=== PATIENT | male | born 1960 | race Caucasian/White ===

== ENCOUNTER → 2017-06-02 | Outpatient (CLI) | payer BC ==
--- NOTE | 2017-06-03 10:13 | PCVCIMAG ---
APPROVED REPORT Exam: Stress Echocardiogram Indication: Family history cad, chest pain Patient Location: Echo lab Stress Nurse: Jessie Bui RN Status: routine HR: 65 bpm Rhythm: NSR Procedure The patient underwent an Exercise Stress Test using the Tavo Protocol. Blood pressure, heart rate, and EKG were monitored. An Echocardiogram was performed by environmental science technician in four stages in quad fashion. At peak stress, four selected images were obtained and placed side by side with resting images for comparison. Stress Test Details Stress Test: Exercise stress testing was performed using a Tavo protocol. HR Resting HR: 65 bpmMax Heart Rate (APMHR): 165 bpm Max HR Achieved: 14.80 bpmTarget HR (85% APMHR): 140 bpm % of APMHR: 8 HR response to stress: Normal HR response to stress BP Resting BP: 122/70 mmHg Max BP: 172/76 mmHg ECG Resting ECG: Sinus Rhythm Stress ECG: Sinus Rhythm, Sinus Tachycardia Arrhythmia: None Recovery ECG: Sinus Rhythm Clinical Reason for Termination: Maximal effort Exercise duration: 12 min 24 sec Highest Stage Achieved: Stage 4: 4.2 mph at 16% grade. Exercise capacity: 14.80 METs Overall Exercise Capacity for Age: Good Stress ECG Conclusion 1. SUBJECTIVELY NEGATIVE FOR ISCHEMIA 2. ELECTROCARDIOGRAPHICALLY NEGATIVE FOR ISCHEMIA Pre-Stress Echo The resting Echocardiogram showed normal left ventricular contractility with an estimated Ejection Fraction of about 55-60%. Normal wall motion in all segments on baseline images. Post-Stress Echo The stress Echocardiogram showed normal left ventricular contractility with an estimated Ejection Fraction of about 60-65%. Normal augmentation of wall motion in all segments on post stress images. Clinical No clinical or ECG evidence for ischemia. Conclusion Clinical Response: Non-ischemic Exercise Capacity: Superior Stress ECG Response: Non-ischemic Stress Echo Images: Non-ischemic 1. LOW RISK STUDY Other Information Study Quality: Good <Conclusion> 1. LOW RISK STUDY
== END | disposition home or self-care (01) ==
LOC: PCVCIMAG 15:16
PROVIDERS: ATTEND Internal Medicine
DX: R07.9 Chest pain, unspecified (principal); R00.0 Tachycardia, unspecified; E78.2 Mixed hyperlipidemia; Z82.49 Family history of ischemic heart disease and other diseases of the circulatory system
CPT/HCPCS: 93325; 93351